=== PATIENT | male | born 1940 | race Caucasian/White ===

== ENCOUNTER 2025-02-09 08:47 | Emergency (ER) | payer MEDICARE, MEDICAID ==
[~2025-02-09] VITALS: Ht 167.6 cm; Wt 59.0 kg
[2025-02-09 08:49] VITALS: O2SAT 99
[2025-02-09 09:12] LABS: BASOPHILS % 0.2 % (0.0-2.0); EOSINOPHILS % 0.0 % (0.0-5.0); HEMATOCRIT. 39.1 % (42.0-52.0); HEMOGLOBIN. 12.9 g/dL (14.0-18.0); LYMPHOCYTES % 7.3 % (20.0-50.0); MEAN PLATELET VOLUME 9.0 fl (7.4-10.4); MONOCYTES % 9.1 % (2.0-8.0); NEUTROPHILS % 83.4 % (40.0-76.0); PLATELET 130 x1000/uL (130-400); RED BLOOD CELL COUNT 4.09 mill/uL (4.7-6.1); RED CELL DISTRIBUTION WIDTH 15.0 % (11.6-14.6)
[2025-02-09 09:26] LABS: CREATININE 1.2 mg/dL (0.6-1.3); UREA NITROGEN BLOOD 16 mg/dL (9-23)
[2025-02-09 09:28] LABS: ASPARTATE AMINOTRANSFERASE 19 IU/L (<34); BILIRUBIN TOTAL 0.9 mg/dL (0.1-1.0); PROTEIN TOTAL 6.7 g/dL (6.0-8.3)
[2025-02-09 11:58] LABS: CLARITY URINE CLOUDY (CLEAR); COLOR URINE YELLOW (YELLOW); GLUCOSE URINE NEGATIVE (NEGATIVE); KETONES URINE TRACE (NEGATIVE); LEUKOCYTE ESTERASE URINE 2+ (NEGATIVE); NITRITE URINE POSITIVE (NEGATIVE); OCCULT BLOOD URINE 3+ (NEGATIVE); PH URINE 5.5 (4.5-8.0); PROTEIN URINE 1+ (NEGATIVE); SPECIFIC GRAVITY URINE 1.015 (1.005-1.030); UROBILINOGEN URINE 1.0 E.U./dL (0.2-1.0)
[2025-02-09 12:07] LABS: BACTERIA URINE 2+; SQUAMOUS EPITHELIAL CELL URINE NONE SEEN /lpf (RARE/1+)
[2025-02-09 17:00] VITALS: BP 159/64; PULSE 77; RESP 21; TEMP 37.2; O2SAT 98
[2025-02-09] MEDS ORDERED: CEFTRIAXONE 1GM/50ML 50 ML IV NR (17:30)
[2025-02-09] MEDS ORDERED: CEFTRIAXONE 1,000 MG in DEXT 5% WATER 100 ML IV SCH (17:30)
[2025-02-09] MEDS: AMOXICILLIN/POTASSIUM CLAVULANATE 875/125MG TAB PO ONE (17:47)
== END 2025-02-09 18:30 | disposition left against medical advice (07) ==
LOC: ER 08:58 → EDBEDREQTM 17:36 → EDBEDREQ 17:36 → CANBEDREQ 17:49 → ER 18:30
DX: N39.0 Urinary tract infection, site not specified (principal); R53.1 Weakness; I10 Essential (primary) hypertension
CPT/HCPCS: 36415; 80053; 81003; 85025; 87077; 87186; 93005; 99285